=== PATIENT | female | born 1980 | race Caucasian/White ===

== ENCOUNTER → 2024-10-10 16:23 | Outpatient (REF) | payer OTHER, SELFPAY | LOC: RAD 16:23 | PROVIDERS: ATTENDING PHYSICIAN Physician Assistant Medical | DX: Z00.00 Encounter for general adult medical examination without abnormal findings (principal); N92.6 Irregular menstruation, unspecified | CPT/HCPCS: 76856 ==

== ENCOUNTER 2025-01-23 06:20 | Day surgery (SDC) | payer OTHER, SELFPAY | END 2025-01-23 11:12 | disposition home or self-care (01) | LOC: GI 06:20 | PROVIDERS: ATTENDING PHYSICIAN Internal Medicine Gastroenterology | DX: D64.9 Anemia, unspecified (principal); K64.9 Unspecified hemorrhoids; K22.89 Other specified disease of esophagus; K63.5 Polyp of colon; K29.50 Unspecified chronic gastritis without bleeding; K31.89 Other diseases of stomach and duodenum; K20.90 Esophagitis, unspecified without bleeding | CPT/HCPCS: 45385; 43239; 88305; 88342 ==